=== PATIENT | male | born 1950 | race Caucasian/White ===

== ENCOUNTER 2019-11-11 02:25 | Outpatient (CLI) | payer OTHER, SELFPAY ==
[2019-11-11 18:24] LABS: SARS-CoV-2 RNA PCR Negative
== END 2019-11-11 02:26 | disposition home or self-care (01) ==
LOC: ANHCOVIDDT 02:26
PROVIDERS: PCP Internal Medicine; Visit Provider Internal Medicine Gastroenterology
DX: Z01.812 Encounter for preprocedural laboratory examination (principal); Z20.828 Contact with and (suspected) exposure to other viral communicable diseases
CPT/HCPCS: 87635; C9803; U0003

== ENCOUNTER 2019-11-13 00:04 | Day surgery (SDC) | payer OTHER, SELFPAY ==
[2019-11-05 14:33] VITALS: BMI 20.4
[2019-11-13 06:16] VITALS: BP 124/56; PULSE 64; RESP 18; TEMP 36.8; O2SAT 100
[2019-11-13] MEDS: LACTATED RINGERS 1,000 ML 150 ML IV CONT (06:31)
--- NOTE | 2019-11-13 07:02 | WPDANESEPPF ---
Anes - Initial Pre Proc Eval Procedure: Operation Date: 11/13/19 07:30 Proposed Procedures p Screening Colonoscopy - Migel Torres MD Date/Time: 11/13/19 07:02 Surgeon: Migel Torres MD Pre Op Diagnosis: Neoplasm Screening Patient Data Age: 69 Gender: M Height: 5 ft 10 in Weight: 64.5 kg Last Vital Signs Temp 98.3 F 11/13/19 06:16 Pulse 64 11/13/19 06:16 Resp 18 11/13/19 06:16 BP 124/56 L 11/13/19 06:16 Pulse Ox 100 11/13/19 06:16 Allergies Allergy/AdvReac Type Severity Reaction Status Date / Time No Known Allergies Allergy Verified 11/05/19 14:32 Home Medications Medication Instructions Recorded Confirmed Type atorvastatin 20 mg PO DAILY 11/05/19 11/05/19 History lisinopril 5 mg PO DAILY 11/05/19 11/05/19 History Patient hx anesthesia problems: none Family hx anesthesia problems: none [facility] Past Medical History Medical History (Updated 11/13/19 @ 07:02 by Hieu Shah MD) GERD (gastroesophageal reflux disease) Hyperlipidemia Hypertension Social History Social History Smoking packs per day: 1.5 Smoking cigarettes per day: 30.0 Smoking status: Former smoker Tobacco type: cigarettes Alcohol intake: current Drinks per week: 18 Substance use: never Substance use type: does not use Living arrangements: with family Spiritual care concerns: No Anes - Eval Final PreProcedure Day of Procedure 11/13/19 07:02 Patient weight: normal Heart: regular rate and rhythm Lungs: clear to auscultation Airway: Mallampati scale class II Neurological: alert and oriented Last oral intake: >/= 8 hours ASA classification: II Emergent: no Anesthetic plan: proceed Anesthesia type and monitoring: general GIVS and standard monitoring Informed Consent: The patient's anesthetic plan and its attendant risks and benefits were discussed with the patient/family/POA. Questions were solicited and answers provided to the satisfaction of the patient/family/POA.
--- NOTE | 2019-11-13 07:08 | PM.HPGS ---
History of Present Illness History of Present Illness Consent: Risks, benefits, and alternatives have been discussed and questions answered. Patient agrees to proceed with procedure. Chief complaint: Neoplasm Screening Narrative: Alexander Gastelum is a 69 year old male With a history of colon polyps here for screening colonoscopy [facility] Past Medical History Medical History GERD (gastroesophageal reflux disease) Hyperlipidemia Hypertension Social History Social History Smoking packs per day: 1.5 Smoking cigarettes per day: 30.0 Smoking status: Former smoker Tobacco type: cigarettes Alcohol intake: current Drinks per week: 18 Substance use: never Substance use type: does not use Living arrangements: with family Spiritual care concerns: No Meds Home Medications and Allergies Home Medications Medication Instructions Recorded Confirmed Type atorvastatin 20 mg PO DAILY 11/05/19 11/05/19 History lisinopril 5 mg PO DAILY 11/05/19 11/05/19 History Allergies Allergy/AdvReac Type Severity Reaction Status Date / Time No Known Allergies Allergy Verified 11/05/19 14:32 Vital Signs Vital Signs - 24 hr 11/13/19 06:16 Temperature 36.8 C Pulse Rate 64 Respiratory Rate 18 Blood Pressure 124/56 L Pulse Oximetry 100 Exam Resp: Auscultation: clear to auscultation bilaterally Cardio: Rate: regular rate Rhythm: regular rhythm GI: GI Palp: Yes Soft to palpation and No Tenderness to palpation present (GI) Assessment and Plan Assessment and plan (1) Colon cancer screening: Code(s): Z12.11 - Encounter for screening for malignant neoplasm of colon Status: Acute Assessment and Plan: Colonoscopy with possible biopsy or polypectomy or cautery or injection of substances.
[2019-11-13 07:51] VITALS: BP 86/49; PULSE 57; RESP 24; O2SAT 98
[2019-11-13 08:02] VITALS: BP 104/60; PULSE 53; RESP 20; O2SAT 100
== END 2019-11-13 08:28 | disposition home or self-care (01) ==
PROVIDERS: PCP Internal Medicine; Visit Provider Internal Medicine Gastroenterology
PROC: 0DJD8ZZ Inspection of Lower Intestinal Tract, Via Natural or Artificial Opening Endoscopic (ICD-10-PCS; CPT 45378; principal; 2019-11-13 07:30)
DX: Z12.11 Encounter for screening for malignant neoplasm of colon (principal); Z86.010 Personal history of colon polyps; I10 Essential (primary) hypertension; E78.5 Hyperlipidemia, unspecified; K21.9 Gastro-esophageal reflux disease without esophagitis; Z87.891 Personal history of nicotine dependence
CPT/HCPCS: 45378; J2001; J2704; J7120

== ENCOUNTER 2019-11-13 08:55 | Outpatient (CLI) | payer OTHER, SELFPAY ==
--- NOTE | ~2019-11-13 | US_ITS ---
US abdomen complete DATE: 11/13/2019 09:59 INDICATION: Abdominal pain TECHNIQUE: Real-time imaging and Doppler evaluation of the abdomen COMPARISON: None FINDINGS: The gallbladder has been surgically removed. No hepatic space-occupying mass lesion is evident. Normal hepatopedal portal venous flow direction. The common bile duct measures up to 6.9 mm diameter, possibly secondary to cholecystectomy. The pancr eatic duct measures up to 4.6 mm diameter. No pancreatic space-occupying mass lesion is evident. No renal mass lesion is detected. The kidneys measure approximately 11.3 cm length. Normal splenic size. Normal caliber of the abdominal aorta. The inferior vena cava is unremarkable.. IMPRESSION: Status post cholecystectomy Mild prominence of the common bile duct, which measures up to 6.9 mm, and pancreatic duct, measuring up to 4.6 cm Reviewed, dictated and finalized at [facility]. Reviewed, dictated and finalized at [facility]. IMPRESSION: Status post cholecystectomy Mild prominence of the common bile duct, which measures up to 6.9 mm, and pancr eatic duct, measuring up to 4.6 cm
[2019-11-13 09:20] LABS: Basophils Absolute Auto 0.1 K/mm3 (0.0-0.1); Basophils Percent Auto 1.3 % (0.2-1.2); Eosinophils Absolute Auto 0.1 K/mm3 (0-0.3); Eosinophils Percent Auto 3.1 % (0-4.4); Hematocrit 44.9 % (42.0-52.0); Hemoglobin 15.4 g/dL (14.0-18.0); Immature Granulocyte Absolute 0.01 K/mm3 (0.00-0.031); Immature Granulocyte Percent A 0.2 % (0-0.5); Lymphocytes Absolute Auto 1.75 K/mm3 (0.9-3.2); Lymphocytes Percent Auto 38.5 % (18.3-44.2); Mean Corpuscular HGB Conc 34.3 g/dl (32-36); Mean Corpuscular Hemoglobin 32.5 pg (26-34); Mean Corpuscular Volume 94.7 fl (80-100); Mean Platelet Volume 9.4 fl (7.4-10.4); Monocytes Absolute Auto 0.4 K/mm3 (0.1-0.6); Monocytes Percent Auto 8.8 % (2.6-8.5); Neutrophils Absolute Auto 2.2 K/mm3 (1.3-6.7); Neutrophils Percent Auto 48.1 % (45.5-73.1); Platelet Count Result 269 k/mm3 (150-375); Red Blood Count 4.74 M/mm3 (4.6-6.20); Red Cell Distribution Width 11.7 % (11.5-14.5); White Blood Count 4.5 K/mm3 (4.5-10.0)
[2019-11-13 09:34] LABS: Alanine Aminotransferase 75 U/L (4-50); Albumin Level 4.4 g/dL (3.5-5.1); Alkaline Phosphatase 59 U/L (38-126); Anion Gap 7 mmol/L (8-16); Aspartate Amino Transferase 62 U/L (17-59); Bilirubin,Total 2.2 mg/dL (0.2-1.3); Blood Urea Nitrogen 10 mg/dL (9-20); Carbon Dioxide 30 mmol/L (22-30); Chloride 99 mmol/L (98-107); Cholesterol 130 mg/dL (0-200); Estimated Glomerular Filt Rate > 60; Glucose 103 mg/dL (75-110); HDL Direct 60 mg/dL; Potassium 4.3 mmol/L (3.4-5.0); Sodium 136 mmol/L (137-145); Triglycerides 52 mg/dL (<150)
[2019-11-13 09:45] LABS: LDL Cholesterol Direct 56 mg/dL
== END 2019-11-13 08:56 | disposition home or self-care (01) ==
PROVIDERS: PCP Internal Medicine; Visit Provider Internal Medicine
DX: R10.9 Unspecified abdominal pain (principal); I10 Essential (primary) hypertension
CPT/HCPCS: 36415; 76700; 80053; 80061; 85025

== ENCOUNTER 2019-12-17 07:45 | Outpatient (CLI) | payer OTHER, SELFPAY ==
[2019-12-17 09:08] LABS: Iron 147 ug/dL (49-181)
[2019-12-18 10:39] LABS: Hepatitis B Surface Antigen Negative (Negative)
[2019-12-18 10:45] LABS: HAV RESULT Negative (Negative); Hepatitis B Core IgM Result Negative (Negative)
[2019-12-18 10:57] LABS: Hepatitis C Virus Antibody Negative (Negative)
[2019-12-19 21:40] LABS: Hepatitis A Antibody Total Nonreactive (Nonreactive)
[2019-12-23 07:45] LABS: Ceruloplasmin 28 mg/dL (18-36)
== END 2019-12-17 07:46 | disposition home or self-care (01) ==
LOC: ANHLAB 07:50
PROVIDERS: PCP Internal Medicine; Visit Provider Internal Medicine
DX: R74.01 Elevation of levels of liver transaminase levels (principal)
CPT/HCPCS: 36415; 80074; 82390; 82525; 82728; 83540; 86038; 86708

== ENCOUNTER 2020-02-08 09:36 | Outpatient (CLI) | payer OTHER, SELFPAY ==
[2020-02-08 11:00] LABS: Iron 158 ug/dL (49-181)
[2020-02-08 11:10] LABS: Percent Iron Saturation 49 % (20-50)
[2020-02-12 23:25] LABS: Ceruloplasmin 30 mg/dL (18-36)
== END 2020-02-08 09:37 | disposition home or self-care (01) ==
PROVIDERS: PCP Internal Medicine; Visit Provider Internal Medicine
DX: R74.01 Elevation of levels of liver transaminase levels (principal)
CPT/HCPCS: 36415; 82390; 82728; 83540; 83550

== ENCOUNTER 2020-04-08 11:23 | Outpatient (CLI) | payer OTHER, SELFPAY | END 2020-04-08 11:24 | disposition home or self-care (01) | PROVIDERS: PCP Internal Medicine; Visit Provider Internal Medicine | DX: R94.5 Abnormal results of liver function studies (principal) | CPT/HCPCS: 36415; 81256 ==